=== PATIENT | male | born 1970 | race Two or more races ===

== ENCOUNTER 2021-10-25 10:49 | Outpatient (REF) | payer OTHER, SELFPAY ==
[2021-10-25 11:50] LABS: COVID-19 Test Negative (Negative); IDNOW Serial# 9DD0AD1C
== END 2021-10-25 10:50 | disposition home or self-care (01) ==
LOC: HO.LAB 10:49
PROVIDERS: Visit Provider Internal Medicine
DX: Z20.822 Contact with and (suspected) exposure to COVID-19 (principal)
CPT/HCPCS: 87635; C9803